=== PATIENT | male | born 1995 | race Caucasian/White ===

== ENCOUNTER 2023-01-12 19:43 | Inpatient (IN) | payer OTHER, SELFPAY ==
--- NOTE | ~2023-01-12 | XR_ITS ---
EXAMINATION: XR CHEST CLINICAL INFORMATION: Chest wall pain. COMPARISON: 05/15/2010 TECHNIQUE: 2 views of the chest were obtained. FINDINGS: The lungs are well expanded. No focal consolidation. No pleural effusion. Cardiac silhouette is within normal limits. XR/XR chest 2V IMPRESSION: No acute abnormality.
[2023-01-12 19:55] VITALS: BMI 23.5
[2023-01-12 20:00] VITALS: RESP 20
[2023-01-12] MEDS: diphenhydrAMINE HCL 50 MG/ML VIAL IM (20:00)
[2023-01-12] MEDS: LORazepam 2 MG/ML VIAL IM (20:00)
[2023-01-12] MEDS: Haloperidol Lactate 5 MG/ML VIAL IM (20:00)
--- NOTE | 2023-01-12 20:02 | ED.PSYCH ---
HPI - Psych General Chief Complaint: Psychiatric Symptoms Stated Complaint: section 12 crisis Time Seen by Provider: 01/12/23 19:48 Source: EMS Mode of arrival: EMS Limitations: altered mental status History of Present Illness HPI Narrative: Patient comes to emergency room on a Section 12 that was started by police department. Patient is too altered, screaming, restrained, unable to give any history. Additionally, patient is screaming in a foreign language, possibly [place]? According to police department, the patient went to faith, told the electrical test engineer that he did not need his belongings anymore and started giving them away. The electrical test engineer called 911. When PD arrived, the patient was yelling at them to shoot him. Seems that patient is intoxicated/high. On arrival to the emergency room, patient is on handcuffs, trying to throw kicks and punches to the staff and belligerent. Patient yell something in Irish. Related Data Allergies Allergy/AdvReac Type Severity Reaction Status Date / Time Unable to Assess Allergy Unverified 01/12/23 19:48 Review of Systems Review of Systems: Yes Unobtainable due to mental status PMFSH Past Medical History Source: unable to obtain Physical Exam Vital Signs: Vital Signs: BMI result Body Mass Index 23.5 Const: Other: Appearance: Alert. Does not seem in any acute distress Eyes: Pupils equal, round and reactive to light. ENT: Pharynx normal. Neck: Normal inspection. CVS: Normal heart rate Respiratory: No respiratory distress. Yelling in full sentences Abdomen:No distention. Skin: Skin warm and dry. Normal skin color. Extremities: Moving all extremities Neuro:Combative, belligerent, cranial nerves 2-12 grossly intact Psych: Valve, belligerent Course Course Course Narrative: -on arrival, patient was very combative, could not get off the stretcher safely, patient was given IM Ativan 2 mg, Benadryl 50 mg, Haldol 5 mg. -patient taken to his room. -all of the labs pending -patient on a Section 12 that was started by police department -care team consult pending -physician observations started at 20:00 Discharge Plan Discharge Clinical Impression: Acute psychosis Patient Disposition: Still a Patient
[2023-01-12 20:15] VITALS: BP 125/65; PULSE 98; RESP 18; TEMP 37.7; O2SAT 97
[2023-01-12 20:30] VITALS: RESP 20
[2023-01-12 20:45] VITALS: RESP 17
[2023-01-12 20:58] LABS: MANUAL DIFF FLAG NO
[2023-01-12 20:59] LABS: Basophils Absolute Auto 0.1 X10*3/uL (0.0-0.2); Basophils Percent Auto 0.4 % (0-2); Eosinophils Percent Auto 0.2 % (0-4); Hematocrit 41.4 % (42.0-52.0); Hemoglobin 13.7 g/dl (14.0-18.0); Imm Gran Abs Auto 0.05 X10*3/uL (0.00-0.03); Imm Gran Pct Auto 0.4 % (0.0-0.4); Lymphocytes Absolute Auto 3.2 X10*3/uL (1.2-4.9); Lymphocytes Percent Auto 22.5 % (20-40); Mean Corpuscular HGB Conc 33.1 g/dl (31.0-36.0); Mean Corpuscular Hemoglobin 28.5 pg (27.0-33.0); Mean Corpuscular Volume 86.3 fL (80.0-98.0); Mean Platelet Volume 9.6 fL (9.4-12.4); Monocytes Absolute Auto 1.4 X10*3/uL (0.1-1.2); Monocytes Percent Auto 9.9 % (2-11); Neutrophils Absolute Auto 9.4 x10*3/uL (2.0-8.3); Neutrophils Percent Auto 66.6 % (45-73); Platelet Count 343 X10*3/uL (160-400); Red Cell Distribution Width 12.6 % (11.0-16.0); White Blood Count 14.2 X10*3/uL (4.8-10.8)
[2023-01-12 21:00] VITALS: RESP 17
[2023-01-12 21:15] VITALS: RESP 17
[2023-01-12 21:18] LABS: Alanine Aminotransferase 51 U/L (0-40); Albumin Level 3.9 g/dL (3.5-5.0); Alkaline Phosphatase 155 U/L (39-117); Anion Gap 12 (12-20); Aspartate Amino Transferase 51 U/L (5-37); Bilirubin Total 0.7 mg/dL (0.0-1.0); Blood Urea Nitrogen 12 mg/dL (9-16); Calcium 9.4 mg/dL (8.4-10.2); Carbon Dioxide 26 mmol/L (22-29); Chloride 106 mmol/L (96-108); Creatinine Clr Calc Pharmacy 119.5; Estimated Glomerular Filt Rate > 60; Ethanol < 10 mg/dL; Glucose Random 111 mg/dL (60-115); Potassium 4.1 mmol/L (3.3-5.1); Sodium 140 mmol/L (135-145); Total Protein 6.8 g/dL (6.5-8.0)
--- NOTE | 2023-01-12 21:35 | MHC.CARE ---
Micky's father and sister was in ED asking for information. CARE Team let family know that he has not been assessed but once assessed we can coordinate with family for collateral. Akosua Villareal [phone], sister
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
[2023-01-13 06:02] VITALS: BP 113/74; PULSE 102; RESP 18; TEMP 36.4; O2SAT 100
--- NOTE | 2023-01-13 06:12 | PC.NURSE ---
Patient slept through the night, no distress observed/reported, just woke up, cooperative with changeover process, Urine sample provided, apologetic of his behavior, behavior pleasant, alert and oriented x 4, coherent, patient is not on any medication, will continue to monitor.
[2023-01-13 06:19] LABS: Appearance Urine Clear; Color Urine Dark Yellow; Glucose Urine UA Negative (Negative); Leukocyte Esterase Urine Negative (Negative); Nitrite Urine Negative (Negative); Specific Gravity - Urine 1.025 (1.005-1.025); Urine Blood Negative (Negative); Urine Ketones Negative (Negative); Urine Protein Trace mg/dL (Neg-Trace)
--- NOTE | 2023-01-13 06:20 | PC.NURSE ---
Care consult ordered, pending evaluation, will continue to monitor
[2023-01-13 06:22] LABS: Amphetamine Screen Urine Not Detected (Not Detect); Barbiturates, Urine Not Detected (Not Detect); Benzodiazepines Screen Urine Not Detected (Not Detect); Cannabinoid Screen Urine POSITIVE (Not Detect); Cocaine Screen Urine Not Detected (Not Detect); Fentanyl, urine Not Detected (Not Detect); Opiate Screen Urine Not Detected (Not Detect); Phencyclidine Screen Urine Not Detected (Not Detect)
[2023-01-13 09:20] VITALS: BP 117/67; PULSE 100; RESP 18; TEMP 37.1; O2SAT 98
--- NOTE | 2023-01-13 10:13 | PC.NURSE ---
Patient requesting coffee which was provided for him
--- NOTE | 2023-01-13 10:15 | PC.NURSE ---
Care team in room speaking with patient. Patient is calm and cooperative with staff.
[2023-01-13] MEDS: Nicotine Polacrilex 2 MG GUM 4 MG BUCCAL ×4 (15:11→22:26)
--- NOTE | 2023-01-13 16:13 | MHC.CARE ---
patient is pending acceptance to inpatient unit. He is currently deciding whether to sign in voluntarily or not.
--- NOTE | 2023-01-13 16:31 | PC.NURSE ---
Patient informed that he will be staying 72 hours. Patient upset about having to stay.
--- NOTE | 2023-01-13 18:10 | MHC.CARE ---
Patient's therapist, Jose Hurtado, calls back, reporting that he has not been the therapist for this patient for some time. Unable to pinpoint exactly when patient's case was closed, but patient stopped attending sessions.
[2023-01-13] MEDS: Acetaminophen 325 MG TABLET 975 MG PO (18:33)
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
[2023-01-13] MEDS: Ibuprofen 600 MG TABLET PO (22:26)
[2023-01-13] MEDS: diphenhydrAMINE HCL 25 MG CAPSULE 50 MG PO (23:09)
[2023-01-13 23:49] VITALS: BP 146/86; PULSE 94; RESP 19; TEMP 36.6; O2SAT 97
[2023-01-13 23:57] LABS: COVID-19 Test Negative (Negative); IDNOW Serial# BCCEAD1C
[2023-01-14] MEDS: LORazepam 1 MG TABLET 2 MG PO ×2 (02:59→19:54)
[2023-01-14] MEDS: Nicotine Polacrilex 2 MG GUM 4 MG BUCCAL ×7 (07:20→19:54)
--- NOTE | 2023-01-14 08:00 | PC.NURSE ---
Initial contact with pt. pt ambulating around unit, restless, verbally aggressive at times. redirected by staff.
[2023-01-14] MEDS: Ibuprofen 400 MG TABLET PO ×2 (08:54→14:59)
[2023-01-14] MEDS: Acetaminophen 325 MG TABLET 975 MG PO ×2 (08:54→14:59)
[2023-01-14 09:43] VITALS: BP 149/93; PULSE 96; RESP 16; TEMP 36.8; O2SAT 99
--- NOTE | 2023-01-14 10:05 | PC.NURSE ---
Pt given toothbrush, took a shower and given new clothes. remains restless, pressured speech at times.
--- NOTE | 2023-01-14 12:01 | PC.NURSE ---
Pt ambulatory around unit, liquids given. remains restless, pressured speech at times.
--- NOTE | 2023-01-14 13:03 | PC.NURSE ---
Meal provided. pt took another shower.
--- NOTE | 2023-01-14 14:00 | PC.NURSE ---
Pt still ambulatory around unit, occasionally belligerent with staff. redirectable with firm commands.
--- NOTE | 2023-01-14 14:56 | PC.NURSE ---
Nurse to nurse given to Izabella on M5
--- NOTE | 2023-01-14 16:15 | PC.NURSE ---
Pt drinking water excessively. continuously requesting water, coffee, tea. boundaries set, pt will wait until dinner time for more fluids.
[2023-01-14] MEDS: hydrOXYzine HCL 50 MG TABLET PO (16:49)
--- NOTE | 2023-01-14 17:38 | PC.NURSE ---
Please contact pt's sister Suzie [phone] when able.
[2023-01-14 18:00] VITALS: PULSE 90; RESP 16; O2SAT 97
[2023-01-14] MEDS: hydrOXYzine HCL 25 MG TABLET PO (19:54)
[2023-01-14] MEDS: OLANZapine 5 MG TABLET PO (19:54)
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
--- NOTE | 2023-01-15 | ECG_ITS ---
Test Reason : qtc check Blood Pressure : / mmHG Vent. Rate : 076 BPM Atrial Rate : 076 BPM P-R Int : 128 ms QRS Dur : 090 ms QT Int : 360 ms P-R-T Axes : 076 079 048 degrees QTc Int : 405 ms Sinus rhythm with marked sinus arrhythmia Otherwise normal ECG No previous ECGs available Referred By: Verónica Sims Electronically Signed By:Blake Doshi
[2023-01-15] MEDS: hydrOXYzine HCL 25 MG TABLET PO ×2 (04:11→10:55)
[2023-01-15] MEDS: LORazepam 1 MG TABLET 2 MG PO ×2 (04:11→23:43)
[2023-01-15] MEDS: Nicotine Polacrilex 2 MG GUM 4 MG BUCCAL ×5 (04:11→23:00)
[2023-01-15] MEDS: OLANZapine 5 MG TABLET PO ×2 (07:56→20:27)
[2023-01-15 08:00] VITALS: BP 137/80; PULSE 87; RESP 18; TEMP 36.1; O2SAT 97
[2023-01-15 08:38] LABS: MANUAL DIFF FLAG NO
[2023-01-15 08:40] LABS: Basophils Percent Auto 0.4 % (0-2); Eosinophils Absolute Auto 0.1 X10*3/uL (0.0-0.4); Hematocrit 47.3 % (42.0-52.0); Hemoglobin 15.3 g/dl (14.0-18.0); Imm Gran Abs Auto 0.04 X10*3/uL (0.00-0.03); Imm Gran Pct Auto 0.4 % (0.0-0.4); Mean Corpuscular HGB Conc 32.3 g/dl (31.0-36.0); Mean Corpuscular Hemoglobin 28.4 pg (27.0-33.0); Mean Corpuscular Volume 87.8 fL (80.0-98.0); Monocytes Absolute Auto 0.9 X10*3/uL (0.1-1.2); Monocytes Percent Auto 8.3 % (2-11); Neutrophils Absolute Auto 6.7 x10*3/uL (2.0-8.3); Neutrophils Percent Auto 61.9 % (45-73); Platelet Count 441 X10*3/uL (160-400); Red Blood Count 5.39 X10*6/uL (4.60-5.80); Red Cell Distribution Width 12.6 % (11.0-16.0); White Blood Count 10.9 X10*3/uL (4.8-10.8)
[2023-01-15 08:52] LABS: Estimated Average Glucose 103 mg/dL; Hemoglobin A1c % 5.2 %
[2023-01-15 09:02] LABS: Cholesterol 125 mg/dL; HDL Cholesterol 52 mg/dL; LDL Cholesterol Calculated 61 mg/dl; Triglycerides 63 mg/dL
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
[2023-01-15] MEDS: OLANZapine 10 MG TABLET PO (13:45)
[2023-01-15 15:50] VITALS: BP 129/64; PULSE 100; TEMP 36.6
[2023-01-15] MEDS: Acetaminophen 325 MG TABLET 975 MG PO (17:06)
[2023-01-16 08:00] VITALS: BP 136/78; PULSE 119; RESP 16; TEMP 36.6; O2SAT 98
[2023-01-16] MEDS: Acetaminophen 325 MG TABLET 975 MG PO (08:10)
[2023-01-16] MEDS: Nicotine Polacrilex 2 MG GUM 4 MG BUCCAL ×4 (08:10→21:22)
[2023-01-16] MEDS: OLANZapine 5 MG TABLET PO ×2 (08:11→21:22)
[2023-01-16] MEDS: LORazepam 1 MG TABLET 2 MG PO ×2 (13:21→21:21)
[2023-01-16] MEDS: hydrOXYzine HCL 25 MG TABLET PO ×2 (14:37→21:22)
[2023-01-16 18:00] VITALS: PULSE 80; RESP 16; O2SAT 99
--- NOTE | 2023-01-16 18:23 | HO.PSYCHPN ---
Subjective Subjective Date of Service: 01/16/23 Reason For Visit: dysregulated Interim History: Pt seen and discussed with team. Visable and active in milieu. Met with tw to discuss discharge. No behavioral dyscontrol. Pt interacting well with team and peers. No mood dysregulation. No psychosis. Expressed anger properly. Filling [facility] complaint forms to address his concerns. Asking to leave on 01/18 which we will most likely acknowledge Some flirtatous behaviors noted with peers and team, which he admits to enjoying the company of women. Side effects from medications: No Attending Groups: Yes Review of Systems Acute medical concerns: No Medical Review of Systems: unchanged Mental Status Exam Mental Status Exam Patient Appearance: Appropriate Patient Orientation: Person, Place, Time and Situation Level of Consciousness: Alert Patient Behavior: Appropriate, Talkative, Cooperative and Good Eye Contact Mood Description: Appropriate Affect Description: Appropriate Patient Cognition Impaired: No Ability to Follow Directions: Good Speech Pattern: Spontaneous Speech Memory Description: Intact Hallucinations: None Delusions: Not Present Thought Process: Goal Oriented Thought Content: positive for Goal Oriented, positive for Suicidal Ideation (denies) and positive for Homicidal Ideation (denies) Depressive Symptoms: Increased Irritability and Back Pain Judgement: Good Diagnostics Vital Signs (24Hr): Vital Signs - 24 hr 01/16/23 08:00 Temperature 97.8 F Pulse Rate 119 H Respiratory Rate 16 Blood Pressure 136/78 Pulse Oximetry 98 Oxygen Delivery Method Room Air BMI result Body Mass Index 23.5 Labs 01/15/23 08:08 01/12/23 20:53 Labs: Laboratory Results - last 48 hr 01/15/23 01/15/23 01/15/23 08:08 08:08 08:08 WBC 10.9 H RBC 5.39 Hgb 15.3 Hct 47.3 MCV 87.8 MCH 28.4 MCHC 32.3 RDW 12.6 Plt Count 441 H D MPV 10.0 Immature Gran % (Auto) 0.4 Neut % (Auto) 61.9 Lymph % (Auto) 28.0 [place] % (Auto) 8.3 Eos % (Auto) 1.0 Baso % (Auto) 0.4 Lymph # (Auto) 3.0 [place] # (Auto) 0.9 Eos # (Auto) 0.1 Baso # (Auto) 0.0 Abs Immat Gran (auto) 0.04 H Absolute Neuts (auto) 6.7 Absolute Nucleated RBC 0.000 Nucleated RBC % (auto) 0.0 Estimat Average Glucose 103 Hemoglobin A1c % 5.2 Triglycerides 63 Cholesterol 125 LDL Cholesterol, Calc 61 HDL Cholesterol 52 Imaging Radiology Impressions: ITS Impressions Chest X-Ray 01/13/23 08:51 IMPRESSION: No acute abnormality. Medications Medications Current Medications Acetaminophen (Acetaminophen 325 Mg Tablet) 975 mg PO Q6H PRN PRN Reason: Pain, Mild (Pain Scale 1-3) Last Admin: 01/16/23 08:10 Dose: 975 mg Al Hydroxide/Mg Hydroxide (Magnesium Hydrox/Alum Hydrox 30 Ml Oral.Susp) 30 ml PO Q6H PRN PRN Reason: Heartburn/Nausea Hydroxyzine HCl (Hydroxyzine Hcl 25 Mg Tablet) 25 mg PO Q6H PRN PRN Reason: Anxiety Last Admin: 01/16/23 14:37 Dose: 25 mg Ibuprofen (Ibuprofen 400 Mg Tablet) 400 mg PO Q6H PRN PRN Reason: Pain, Mild (Pain Scale 1-3) Last Admin: 01/14/23 14:59 Dose: 400 mg Lorazepam (Lorazepam 1 Mg Tablet) 2 mg PO Q6H PRN PRN Reason: agitation/sleep Last Admin: 01/16/23 13:21 Dose: 2 mg Magnesium Hydroxide (Milk Of Magnesia 30 Ml Oral.Susp) 30 ml PO DAILY PRN PRN Reason: Constipation Nicotine Polacrilex (Nicotine Polacrilex 2 Mg Gum) 4 mg BUCCAL Q2H PRN PRN Reason: Nicotine Cravings Last Admin: 01/16/23 13:21 Dose: 4 mg Nicotine Polacrilex (Nicotine Polacrilex 2 Mg Gum) 4 mg BUCCAL Q2H PRN PRN Reason: Nicotine Cravings Olanzapine (Olanzapine 5 Mg Tablet) 5 mg PO BID HATTIE Last Admin: 01/16/23 08:11 Dose: 5 mg Olanzapine (Olanzapine 10 Mg Tablet) 10 mg PO Q6H PRN PRN Reason: agitation Last Admin: 01/15/23 13:45 Dose: 10 mg Trazodone HCl (Trazodone Hcl 50 Mg Tablet) 50 mg PO BEDTIME MRX1 PRN PRN Reason: Insomnia Allergies Allergies Allergy/AdvReac Type Severity Reaction Status Date / Time No Known Allergies Allergy Verified 01/13/23 00:41 Assessment & Plan Assessment & Plan (1) Mood disorder: Status: Acute Code(s): F39 - Unspecified mood [affective] disorder (2) Substance abuse: Status: Acute Code(s): F19.10 - Other psychoactive substance abuse, uncomplicated Plan 27 yo male to ED with police, after making suicidal statements to his 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 Pt reportedly not sleeping, not acting like himself. Question of substance induced mood changes vs bipolar disorder sx vs joão. Family is very concerned. By history, pt declines all treatment, including medications. Current status is 12B. Pt asking for discharge. Plan: Continue to monitor for sx of joão Lumbar XRay-portable for back pain Collateral contact- Message left for pt's attorney lawyer, Martellisac Bernal [phone] per pt request. Education 01/16/23 Pt continues to not want to participate in treatment. He has no interest in medications. He is expressing his anger properly at the circumstances that led to admission and he is participating in the milieu and accepting education. No behavioral dyscontrol per team report. Patient educated on: therapeutic strategies Informed Consent: understands Reason for continued inpatient stay Substantial Risk for: rapid decompensation Time Spent With Patient Time: Total time managing care of this patient today ____ minutes.
[2023-01-17] MEDS: Ibuprofen 400 MG TABLET PO ×2 (06:24→23:19)
[2023-01-17] MEDS: Acetaminophen 325 MG TABLET 975 MG PO ×2 (06:24→12:27)
[2023-01-17 08:10] VITALS: BP 143/77; PULSE 100; RESP 18; TEMP 36.7; O2SAT 96
[2023-01-17] MEDS: OLANZapine 5 MG TABLET PO (08:24)
--- NOTE | 2023-01-17 08:54 | HO.PSYCHPN ---
Subjective Subjective Date of Service: 01/17/23 Reason For Visit: dysregulated Healthcare Proxy: No Guardianship: No Medical Problems Affecting Mental Status: No Interim History: Pt is visable in milieu and interactive with peers. No issues with behavior, lability or psychosis. He is open, engaging and appears to enjoy his peer group. He is wanting to discharge tomorrow. He will not continue Olanzapine, but, asks for referral for assessment for medical cannabis. He also would like to begin a combination of Adderall and Vicodin for ADHD. He has completed a copy of a [facility] incident report and has given tw a copy for his record He discussed his belief that he has issues with anger mgt. He will accept an OP referral and hopes he can return to [facility] and be seen by a prescriber his therapist chooses. He received visits for his birthday and way pleased. He reports he has found the team and his stay a good experience given his being sent in without consent and if needed he will return. Medication Compliance: Intermittent Side effects from medications: Yes (reports feeling tired when on meds) Attending Groups: Yes Review of Systems Acute medical concerns: No Medical Review of Systems: unchanged Mental Status Exam Mental Status Exam Patient Appearance: Appropriate Patient Orientation: Person, Place, Time and Situation Level of Consciousness: Alert Patient Behavior: Appropriate, Talkative, Cooperative and Good Eye Contact Mood Description: Appropriate Affect Description: Appropriate Patient Cognition Impaired: No Ability to Follow Directions: Good Speech Pattern: Spontaneous Speech Memory Description: Intact Hallucinations: None Delusions: Not Present Thought Process: Goal Oriented Thought Content: positive for Goal Oriented, positive for Suicidal Ideation (denies) and positive for Homicidal Ideation (denies) Depressive Symptoms: Increased Irritability and Back Pain Judgement: Good Diagnostics Vital Signs (24Hr): Vital Signs - 24 hr 01/16/23 18:00 01/17/23 08:10 Temperature 98.0 F Pulse Rate 80 100 Respiratory Rate 16 18 Blood Pressure 143/77 H Pulse Oximetry 99 96 Oxygen Delivery Method Room Air Room Air BMI result Body Mass Index 23.5 Labs 01/15/23 08:08 01/12/23 20:53 Labs: Laboratory Results - last 48 hr 01/15/23 08:08 Triglycerides 63 Cholesterol 125 LDL Cholesterol, Calc 61 HDL Cholesterol 52 Imaging Radiology Impressions: ITS Impressions Chest X-Ray 01/13/23 08:51 IMPRESSION: No acute abnormality. Medications Medications Current Medications Acetaminophen (Acetaminophen 325 Mg Tablet) 975 mg PO Q6H PRN PRN Reason: Pain, Mild (Pain Scale 1-3) Last Admin: 01/17/23 06:24 Dose: 975 mg Al Hydroxide/Mg Hydroxide (Magnesium Hydrox/Alum Hydrox 30 Ml Oral.Susp) 30 ml PO Q6H PRN PRN Reason: Heartburn/Nausea Hydroxyzine HCl (Hydroxyzine Hcl 25 Mg Tablet) 25 mg PO Q6H PRN PRN Reason: Anxiety Last Admin: 01/16/23 21:22 Dose: 25 mg Ibuprofen (Ibuprofen 400 Mg Tablet) 400 mg PO Q6H PRN PRN Reason: Pain, Mild (Pain Scale 1-3) Last Admin: 01/17/23 06:24 Dose: 400 mg Lorazepam (Lorazepam 1 Mg Tablet) 2 mg PO Q6H PRN PRN Reason: agitation/sleep Last Admin: 01/16/23 21:21 Dose: 2 mg Magnesium Hydroxide (Milk Of Magnesia 30 Ml Oral.Susp) 30 ml PO DAILY PRN PRN Reason: Constipation Nicotine Polacrilex (Nicotine Polacrilex 2 Mg Gum) 4 mg BUCCAL Q2H PRN PRN Reason: Nicotine Cravings Last Admin: 01/16/23 21:22 Dose: 4 mg Nicotine Polacrilex (Nicotine Polacrilex 2 Mg Gum) 4 mg BUCCAL Q2H PRN PRN Reason: Nicotine Cravings Olanzapine (Olanzapine 5 Mg Tablet) 5 mg PO BID HATTIE Last Admin: 01/17/23 08:24 Dose: 5 mg Olanzapine (Olanzapine 10 Mg Tablet) 10 mg PO Q6H PRN PRN Reason: agitation Last Admin: 01/15/23 13:45 Dose: 10 mg Trazodone HCl (Trazodone Hcl 50 Mg Tablet) 50 mg PO BEDTIME MRX1 PRN PRN Reason: Insomnia Allergies Allergies Allergy/AdvReac Type Severity Reaction Status Date / Time No Known Allergies Allergy Verified 01/13/23 00:41 Assessment & Plan Assessment & Plan (1) Mood disorder: Status: Acute Code(s): F39 - Unspecified mood [affective] disorder (2) Substance abuse: Status: Acute Code(s): F19.10 - Other psychoactive substance abuse, uncomplicated Plan 27 yo male to ED with police, after 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 Pt reportedly not sleeping, not acting like himself. Question of substance induced mood changes vs bipolar disorder sx vs joão. Family is very concerned. By history, pt declines all treatment, including medications. Current status is 12B. Pt asking for discharge. Plan: Continue to monitor for sx of joão Lumbar XRay-portable for back pain Collateral contact- Message left for pt's deputy attorney general, Martellisac Bernal [phone] per pt request. Education 01/17/23 Continue current plan of care. Probable discharge 01/18/23. Patient educated on: medication risk/benefits Informed Consent: understands Reason for continued inpatient stay Substantial Risk for: rapid decompensation Time Spent With Patient Time: Total time managing care of this patient today ____ minutes.
[2023-01-17] MEDS: Nicotine Polacrilex 2 MG GUM 4 MG BUCCAL ×4 (09:10→21:29)
[2023-01-17] MEDS: hydrOXYzine HCL 25 MG TABLET PO ×2 (14:01→19:49)
[2023-01-17] MEDS: LORazepam 1 MG TABLET 2 MG PO (15:08)
[2023-01-17 18:00] VITALS: BP 140/78; PULSE 88; RESP 24; TEMP 36.6; O2SAT 99
[2023-01-17] MEDS: OLANZapine 10 MG TABLET PO (19:49)
[2023-01-18] MEDS: Nicotine Polacrilex 2 MG GUM 4 MG BUCCAL ×6 (04:00→21:59)
[2023-01-18] MEDS: OLANZapine 10 MG TABLET PO ×2 (04:00→12:59)
[2023-01-18] MEDS: hydrOXYzine HCL 25 MG TABLET PO (04:00)
[2023-01-18] MEDS: Acetaminophen 325 MG TABLET 975 MG PO ×3 (04:01→17:23)
[2023-01-18] MEDS: Ibuprofen 400 MG TABLET PO ×3 (05:37→17:24)
[2023-01-18] MEDS: LORazepam 1 MG TABLET 2 MG PO (05:37)
[2023-01-18 08:05] VITALS: BP 156/80; PULSE 105; RESP 18; TEMP 36.5; O2SAT 99
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
[2023-01-18 22:05] VITALS: BP 152/70; PULSE 101; TEMP 36.2
[2023-01-19] MEDS: LORazepam 1 MG TABLET 2 MG PO ×2 (05:56→11:58)
[2023-01-19] MEDS: Nicotine Polacrilex 2 MG GUM 4 MG BUCCAL ×5 (05:56→21:32)
[2023-01-19] MEDS: Acetaminophen 325 MG TABLET 975 MG PO ×3 (06:03→18:06)
[2023-01-19] MEDS: Ibuprofen 400 MG TABLET PO ×3 (06:06→22:07)
[2023-01-19 08:33] VITALS: BP 126/80; PULSE 98; RESP 18; TEMP 36.7; O2SAT 98
--- NOTE | 2023-01-19 11:46 | HO.PSYCHPN ---
Subjective Subjective Date of Service: 01/19/23 Reason For Visit: dysregulated Interim History: Patient seen and discussed. Patient continues to present in a hypomanic/manic state. He is pressured and perseverative. He is demanding discharge STAT! . He is intrusive with other patients. Staff report sexual comments to female patients/staff. Needs redirection. He is expansive. Threatening to call the police and file a law suit. He is restless with increased motor activity. Denies SI or AVH. Review of Systems Review of Systems Yes Unobtainable due to mental status Constitutional: Reports no additional constitutional complaints Eyes: Reports no additional eye complaints Reports system reviewed and no additional complaints, except as documented Cardiovascular: Reports no additional cardiovascular complaints Respiratory: Reports no additional respiratory complaints Gastrointestinal: Reports no additional gastrointestinal complaints Genitourinary: Reports no additional male genitourinary complaints Musculoskeletal: Reports back pain (lower disc injury age 13 with compression fx, ?Arthritis sx.) Skin/Breast: Reports system reviewed and no additional complaints, except as docu Reports system reviewed and no additional complaints, except as documented and Reports behavioral changes Psychiatric: Reports abnormal sleep pattern, Reports behavioral changes, Reports irritability, Reports anhedonia, Reports mood swings, Reports homicidal ideation (denies) and Reports suicidal ideation (denies) Endocrine: Reports no additional endocrine complaints Hematologic/Lymphatic: Reports no additional hematologic/lymphatic complaints Allergic/Immunologic: Reports no additional allergic/immunologic complaints Mental Status Exam Mental Status Exam Patient Appearance: Appropriate Patient Orientation: Person, Place, Time and Situation Level of Consciousness: Alert Patient Behavior: Appropriate, Talkative, Hyperactive, Cooperative, Restless, Verbal Threats, Good Eye Contact and Impulsive Mood Description: Expansive Affect Description: Expansive Patient Cognition Impaired: No Ability to Follow Directions: Good Speech Pattern: Spontaneous Speech, Rapid, Excessive and Pressured Memory Description: Intact Hallucinations: None Delusions: Not Present Thought Content: positive for Circumstantial and positive for Perseveration Abnormal Motor Activity Signs and Symptoms: Hyperactivity and Restlessness Judgement: Poor Diagnostics Vital Signs (24Hr): Vital Signs - 24 hr 01/18/23 22:05 01/19/23 08:33 Temperature 97.2 F 98.0 F Pulse Rate 101 H 98 Respiratory Rate 18 Blood Pressure 152/70 H 126/80 Pulse Oximetry 98 Oxygen Delivery Method Room Air BMI result Body Mass Index 23.5 Labs 01/15/23 08:08 01/12/23 20:53 Imaging Radiology Impressions: ITS Impressions Chest X-Ray 01/13/23 08:51 IMPRESSION: No acute abnormality. Medications Medications Current Medications Acetaminophen (Acetaminophen 325 Mg Tablet) 975 mg PO Q6H PRN PRN Reason: Pain, Mild (Pain Scale 1-3) Last Admin: 01/19/23 06:03 Dose: 975 mg Al Hydroxide/Mg Hydroxide (Magnesium Hydrox/Alum Hydrox 30 Ml Oral.Susp) 30 ml PO Q6H PRN PRN Reason: Heartburn/Nausea Gabapentin (Gabapentin 600 Mg Tablet) 600 mg PO BEDTIME HATTIE Last Admin: 01/18/23 21:58 Dose: 600 mg Hydroxyzine HCl (Hydroxyzine Hcl 25 Mg Tablet) 25 mg PO Q6H PRN PRN Reason: Anxiety Last Admin: 01/18/23 04:00 Dose: 25 mg Ibuprofen (Ibuprofen 400 Mg Tablet) 400 mg PO Q6H PRN PRN Reason: Pain, Mild (Pain Scale 1-3) Last Admin: 01/19/23 06:06 Dose: 400 mg Lorazepam (Lorazepam 1 Mg Tablet) 2 mg PO Q6H PRN PRN Reason: agitation/sleep Last Admin: 01/19/23 05:56 Dose: 1 mg Magnesium Hydroxide (Milk Of Magnesia 30 Ml Oral.Susp) 30 ml PO DAILY PRN PRN Reason: Constipation Melatonin (Melatonin 3 Mg Tablet) 3 mg PO BEDTIME PRN PRN Reason: Insomnia Last Admin: 01/18/23 21:58 Dose: 3 mg Nicotine Polacrilex (Nicotine Polacrilex 2 Mg Gum) 4 mg BUCCAL Q2H PRN PRN Reason: Nicotine Cravings Last Admin: 01/19/23 08:34 Dose: 4 mg Nicotine Polacrilex (Nicotine Polacrilex 2 Mg Gum) 4 mg BUCCAL Q2H PRN PRN Reason: Nicotine Cravings Olanzapine (Olanzapine 10 Mg Tablet) 10 mg PO Q6H PRN PRN Reason: agitation Last Admin: 01/18/23 12:59 Dose: 10 mg Olanzapine (Olanzapine 5 Mg Tablet) 5 mg PO BID HATTIE Last Admin: 01/19/23 08:34 Dose: 5 mg Trazodone HCl (Trazodone Hcl 50 Mg Tablet) 50 mg PO BEDTIME MRX1 PRN PRN Reason: Insomnia Allergies Allergies Allergy/AdvReac Type Severity Reaction Status Date / Time No Known Allergies Allergy Verified 01/13/23 00:41 Assessment & Plan Assessment & Plan (1) Mood disorder: Status: Acute Code(s): F39 - Unspecified mood [affective] disorder (2) Substance abuse: Status: Acute Code(s): F19.10 - Other psychoactive substance abuse, uncomplicated Plan 27 yo male to ED with police, after making suicidal statements to 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 Pt reportedly not sleeping, not acting like himself. Question of substance induced mood changes vs bipolar disorder sx vs joão. Family is very concerned. By history, pt declines all treatment, including medications. Current status is 12B. Pt asking for discharge. Plan: Continue to monitor for sx of joão Lumbar XRay-portable for back pain Collateral contact- Message left for pt's deputy prosecuting attorney, Martell Bernal [phone] per pt request. Education 01/17/23 Continue current plan of care. Probable discharge 01/18/23. 01/18/23 Cancel discharge. Attempt to resolve family/pt conflicts regarding his refusal of treatment. 01/19: Continue current treatment plan. Reason for continued inpatient stay Substantial Risk for: harm to self, inability to function and rapid decompensation Time Spent With Patient Time: Total time managing care of this patient today ____ minutes.
[2023-01-19 15:42] VITALS: BP 152/85; PULSE 103; RESP 16; O2SAT 99
[2023-01-19] MEDS: hydrOXYzine HCL 25 MG TABLET PO (16:09)
[2023-01-19] MEDS: OLANZapine 10 MG TABLET PO (16:33)
[2023-01-19 18:00] VITALS: BP 121/68; PULSE 91; TEMP 36.1
[2023-01-20] MEDS: traZODone HCL 50 MG TABLET PO (01:55)
[2023-01-20] MEDS: LORazepam 1 MG TABLET 2 MG PO ×2 (02:32→11:05)
[2023-01-20] MEDS: hydrOXYzine HCL 25 MG TABLET PO ×2 (03:54→08:28)
[2023-01-20] MEDS: Nicotine Polacrilex 2 MG GUM 4 MG BUCCAL ×4 (03:57→13:15)
[2023-01-20 06:00] VITALS: BP 121/87; PULSE 84; RESP 16; TEMP 36.8; O2SAT 96
[2023-01-20] MEDS: Acetaminophen 325 MG TABLET 975 MG PO (08:29)
[2023-01-20] MEDS: Ibuprofen 400 MG TABLET PO (08:29)
--- NOTE | 2023-01-20 16:47 | P.DS_ITS ---
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 Has provider been notified: No Attending physician on discharge: Elvin Dowd Discharging clinician: Verónica Sims DS: Diagnosis Discharge Diagnosis (1) Mood disorder: Status: Acute (2) Substance abuse: Status: Acute DS: Medications Discharge Medications Home Medications: Previous Rx's Medication Instructions Recorded gabapentin 600 mg tablet 600 mg PO BEDTIME #14 tabs 01/20/23 melatonin 3 mg tablet 3 mg PO BEDTIME PRN Insomnia #30 01/20/23 tabs nicotine (polacrilex) 2 mg gum 4 mg buccal Q2H PRN Nicotine 01/20/23 Cravings #60 ea olanzapine 5 mg tablet (Zyprexa) 5 mg PO BID #60 tabs 01/20/23 Mental Status Exam Mental Status Exam Patient Appearance: Appropriate Patient Orientation: Person, Place, Time and Situation Level of Consciousness: Alert Patient Behavior: Appropriate, Talkative, Cooperative and Good Eye Contact Mood Description: Appropriate Affect Description: Appropriate Patient Cognition Impaired: No Ability to Follow Directions: Good Speech Pattern: Spontaneous Speech Memory Description: Intact Hallucinations: None Delusions: Not Present Thought Content: positive for Circumstantial Abnormal Motor Activity Signs and Symptoms: Restlessness Judgement: Good Data Data Completed and Pending Completed studies during hospitalization [Text1]: 01/13/23 01/15/23 01/15/23 23:35 08:08 08:08 WBC 10.9 H RBC 5.39 Hgb 15.3 Hct 47.3 MCV 87.8 MCH 28.4 MCHC 32.3 RDW 12.6 Plt Count 441 H D MPV 10.0 Immature Gran % (Auto) 0.4 Neut % (Auto) 61.9 Lymph % (Auto) 28.0 [place] % (Auto) 8.3 Eos % (Auto) 1.0 Baso % (Auto) 0.4 Lymph # (Auto) 3.0 [place] # (Auto) 0.9 Eos # (Auto) 0.1 Baso # (Auto) 0.0 Abs Immat Gran (auto) 0.04 H Absolute Neuts (auto) 6.7 Absolute Nucleated RBC 0.000 Nucleated RBC % (auto) 0.0 Estimat Average Glucose 103 Hemoglobin A1c % 5.2 Triglycerides Cholesterol LDL Cholesterol, Calc HDL Cholesterol COVID-19 (JOSE) Negative COVID-19 Clin Com See Note 01/15/23 08:08 WBC RBC Hgb Hct MCV MCH MCHC RDW Plt Count MPV Immature Gran % (Auto) Neut % (Auto) Lymph % (Auto) [place] % (Auto) Eos % (Auto) Baso % (Auto) Lymph # (Auto) [place] # (Auto) Eos # (Auto) Baso # (Auto) Abs Immat Gran (auto) Absolute Neuts (auto) Absolute Nucleated RBC Nucleated RBC % (auto) Estimat Average Glucose Hemoglobin A1c % Triglycerides 63 Cholesterol 125 LDL Cholesterol, Calc 61 HDL Cholesterol 52 COVID-19 (JOSE) COVID-19 Clin Com Imaging Diagnostic Imaging Impressions Chest X-Ray 01/13/23 08:51 IMPRESSION: No acute abnormality. DS: Summary Hospital Course Hospital Course: Admission to adult psychiatry, Section 12B for exacerbation of substance use with lability of mood. Pt diagnosed bipolar in 2020 while under the influence. Prior to admission he reports using cannabis and cocaine. Family and community report SI expressed at a of a friend and concern for pt's safety. Pt was in control during his admission. He reported no interest in medications or treatment, did struggle with his family around this decision, and was discharged to his home up expiration of Section 12B. Time spent discussing smoking cessation with patient: 3 to 10 minutes Status at Discharge Functional status at discharge: independent ambulation Overall status at discharge: patient is back to baseline Time Spent with Patient Time attestation: Total time managing care of this patient today ____ minutes. Time spent: Greater than 30 minutes Discharge Plan Discharge Anticipated Discharge Date/Time: 01/20/23 13:11 Patient Disposition: Home, Self-Care Discharge Diagnosis: Bipolar Disorder Cannabis Use Disorder Polysubstance Use Disorder by history Referrals: [facility] [Other] - 1 Week (Call next week to ask about the status of your application) Psych Prescriber: Camille Anguiano ([facility]) [Other] - 02/15/23 3:00 pm (Appointment is in person at the office; this will be self-pay until you obtain insurance) Physician,Unknown J [Primary Care Provider] - 1 Week (referred to [address] [phone]) Discharge Medications: New gabapentin 600 mg Tablet 600 mg PO BEDTIME Qty: 14 1RF nicotine (polacrilex) 2 mg Gum 4 mg buccal Q2H PRN (Reason: Nicotine Cravings) Qty: 60 0RF melatonin 3 mg Tablet 3 mg PO BEDTIME PRN (Reason: Insomnia) Qty: 30 0RF olanzapine [Zyprexa] 5 mg tablet 5 mg PO BID Qty: 60 0RF Discharge Orders: Discharge Order (Routine); Ordered 01/20/23 Ordered By: Verónica Sims Diet: Advance to usual diet Activity on Discharge: As tolerated Stand Alone Forms: Patient Portal Discharge page, Community Support Care Plan Goals: Stable mood and behaviors Sobriety Health Concerns: Stable mood and behaviors Sobriety Plan of Treatment: Attend follow up appointments Take medications as directed Assessment: Pt discharges today at the expiration of a Section 12B. He was interviewed prior to discharge and found to be fully oriented and without SI HI Pt has insight, he states he will pursue treatment and medications. He believes his bipolar diagnoses was given in 2020 when he was under the influence of substances and believes he will ask for a re-evaluation of diagnostics and medication regime. He believes treatment is needed. Pt is not in imminent risk of harm to self or others and has a plan that includes presenting to the ER if feeling unsafe, contacting family and/or friends if he is in need of help. Pt has been observed closely by nursing and unit staff throughout admission. Pt has not engaged in any behaviors that suggest dangerousness to self or others and has demonstrated appropriate behaviors and impulse control. Discharge Date/Time: 01/20/23 14:20
== END 2023-01-20 14:20 | disposition home or self-care (01) | DRG 885 ==
LOC: HO.ED 01-14 17:13 → HO.PM5 01-14 17:15
PROVIDERS: Admitting Provider Psychiatry & Neurology Psychiatry; Emergency Provider Emergency Medicine; Visit Provider Clinical Nurse Specialist Psychiatric/Mental Health, Adult
DX: F31.9 Bipolar disorder, unspecified (principal); F12.10 Cannabis abuse, uncomplicated; F17.210 Nicotine dependence, cigarettes, uncomplicated; Z71.6 Tobacco abuse counseling; F19.10 Other psychoactive substance abuse, uncomplicated; Z20.822 Contact with and (suspected) exposure to COVID-19; Z79.899 Other long term (current) drug therapy
CPT/HCPCS: 36415; 71046; 80053; 80061; 80307; 81003; 83036; 85025; 87635; 93005; 99285; J1200; J2060; S9485

== ENCOUNTER → 2023-01-14 16:54 | Outpatient (BNV) | payer SELFPAY | PROVIDERS: Admitting Provider Psychiatry & Neurology Psychiatry; Emergency Provider Emergency Medicine; Visit Provider Clinical Nurse Specialist Psychiatric/Mental Health, Adult | DX: F39 Unspecified mood [affective] disorder (principal); F19.10 Other psychoactive substance abuse, uncomplicated | CPT/HCPCS: 90792; 99231; 99232; 99239 ==